=== PATIENT | male | born 1995 | race Two or more races ===

== ENCOUNTER 2020-02-10 17:44 | Emergency (ER) | payer MEDICAID, OTHER ==
[~2020-02-10] VITALS: Ht 182.9 cm; Wt 90.7 kg
[2020-02-10 18:19] VITALS: BP 140/87
[2020-02-10 20:11] LABS: Basophils # (auto) 0.1 10 ^3/uL (0-0.2); Basophils % (auto) 0.7 % (0.0-2.0); Eosinophils # (auto) 0.4 10 ^3/uL (0-0.8); Hematocrit 41.8 % (41.0-53.0); Hemoglobin 14.5 g/dL (13.5-17.5); Lymphocytes # (auto) 2.9 10 ^3/uL (0.4-5.4); Lymphocytes % (auto) 32.5 % (10.0-50.0); Mean Corpuscular Hemoglobin 31.4 pg (28.0-32.0); Mean Corpuscular Hgb Conc. 34.6 g/dL (32.0-36.0); Mean Corpuscular Volume 90.8 fL (80.0-100.0); Monocytes # (auto) 0.9 10 ^3/uL (0-1.3); Neutrophils # (auto) 4.7 10 ^3/uL (1.6-8.6); Neutrophils % (auto) 52.8 % (37.0-80.0); Nucleated Red Blood Cells % 0.2 %; Platelet Count (auto) 259 10^3/uL (140-450); Red Cell Distribution Width 12.5 % (11.8-14.3); White Blood Cell 8.9 10^3/uL (4.4-10.8)
[2020-02-10 20:39] LABS: Calcium 9.5 mg/dL (8.5-10.1); Potassium 3.3 mmol/L (3.5-5.1)
[2020-02-10 20:45] LABS: Albumin 4.4 g/dL (3.4-5.0); Bilirubin, Total 1.6 mg/dL (0.2-1.0)
[2020-02-10 22:51] LABS: Urine Bacteria NONE SEEN /hpf (None Seen); Urine Blood Negative /uL (Negative); Urine Hyaline Cast FEW /lpf (0 - 2); Urine Mucus FEW (None Seen); Urine Specific Gravity 1.023 (1.001-1.035); Urine WBC 2 /hpf (0 - 3)
== END 2020-02-11 04:20 | disposition left against medical advice (07) ==
LOC: ER 17:44
DX: R11.2 Nausea with vomiting, unspecified (principal); R10.84 Generalized abdominal pain; Z53.21 Procedure and treatment not carried out due to patient leaving prior to being seen by health care provider
CPT/HCPCS: 36415; 80053; 81001; 85025

== ENCOUNTER 2021-08-30 13:43 | Emergency (ER) | payer MEDICAID ==
[2021-08-30 14:33] VITALS: BP 112/71
== END 2021-08-30 14:54 ==
LOC: EEVIPCON 13:43 → ER 13:43
DX: F10.129 Alcohol abuse with intoxication, unspecified (principal); F17.210 Nicotine dependence, cigarettes, uncomplicated; F12.10 Cannabis abuse, uncomplicated; Y90.8 Blood alcohol level of 240 mg/100 ml or more; V49.9XXA Car occupant (driver) (passenger) injured in unspecified traffic accident, initial encounter; Y93.89 Activity, other specified; Y92.89 Other specified places as the place of occurrence of the external cause; Y99.8 Other external cause status